=== PATIENT | female | born 1965 | race American Indian/Alaskan Native ===

== ENCOUNTER 2018-05-20 17:00 | Emergency (ER) | payer MEDICAID ==
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
[2018-05-20 19:21] VITALS: BP 118/76; PULSE 88; RESP 18; TEMP 98
[2018-05-22 22:51] VITALS: O2SAT 99
== END 2018-05-20 19:37 | disposition home or self-care (01) ==
LOC: H.ER 17:00
DX: F43.21 Adjustment disorder with depressed mood (principal)

== ENCOUNTER 2018-05-20 22:25 | Emergency (ER) | payer MEDICAID ==
--- NOTE | 2018-05-20 23:36 | ED PDOC ---
HPI: General Adult Time Seen by Provider: 05/20/18 23:13 Chief Complaint (Nursing): Pain, Chronic Chief Complaint (Provider): Chronic Pain History Per: Patient History/Exam Limitations: no limitations Onset/Duration Of Symptoms: Days ("awhile") Recently: Seen In ED Additional Complaint(s): Patient is a 53 year old female who presents to the ED for evaluation of chronic pain. Patient cannot localize pain, stating "everything hurts, and hurts for awhile". Patient was seen in this ED earlier today by this provider and demonstrated bed seeking behavior upon discharge and had to be escorted out of ED by security. Patient remained in the ED waiting room afterwards and when approached by security, signed up for a second evaluation. Patient currently not cooperative with questioning. Patient reported earlier that she is homeless and was [facility]. Denies falls/trauma. Past Medical History Reviewed: Historical Data, Nursing Documentation, Vital Signs Vital Signs: Last Vital Signs Temp 98.1 F 05/20/18 23:02 Pulse 85 05/20/18 23:02 Resp 16 05/20/18 23:02 BP 150/97 H 05/20/18 23:02 Pulse Ox 97 05/20/18 23:02 - Medical History PMH: Anxiety, Depression - Family History Family History: States: Unknown Family Hx - Living Arrangements Living Arrangements: Other (homeless) - Home Medications Home Medications: Ambulatory Orders Medication Instructions Recorded RX: No Known Home Med 05/18/18 - Allergies Allergies/Adverse Reactions: Allergies Allergy/AdvReac Type Severity Reaction Status Date / Time egg Allergy RASH Verified 05/20/18 23:01 Penicillins Allergy RASH Verified 05/20/18 23:01 Review of Systems ROS Statement: Except As Marked, All Systems Reviewed And Found Negative Constitutional: Positive for: Other (homelessness) Musculoskeletal: Positive for: Other (chronic pain) Physical Exam - Reviewed Nursing Documentation Reviewed: Yes Vital Signs Reviewed: Yes - Physical Exam Appears: Positive for: Non-toxic (poor hygiene noted), No Acute Distress Head Exam: Positive for: NORMOCEPHALIC Eye Exam: Positive for: Normal appearance ENT: Positive for: Other (Mucus membranes moist. Airway patent, (-) stridor. ) Neck: Positive for: Supple Cardiovascular/Chest: Positive for: Regular Rate, Rhythm Respiratory: Positive for: Normal Breath Sounds Extremity: Positive for: Normal ROM Neurologic/Psych: Positive for: Alert, Oriented (x3), Gait (steady in ED without assistance) - ECG O2 Sat by Pulse Oximetry: 97 (RA) Pulse Ox Interpretation: Normal Medical Decision Making Medical Decision Makin Initial Impression: chronic pain, homelessness/malingering Plan: -Motrin 600mg PO as patient refused Tylenol PO stating "I'm allergic to it, it doesn't go down" -Extensive conversation with patient was had by [facility] and ED RN Paulette. Patient was given resources for nearby homeless shelters and warming centers. Patient states "can't you just admit me, I have no where to go and don't wanna go to those other shelters". Diagnostic results d/w the patient in great detail. Diagnosis of chronic pain, homelessness/malingering d/w the patient. Based on history, exam and diagnostic results, plan will be for outpatient follow up with clinic Patient instructed to follow-up with pmd / referral provided / the clinic in 1- 2 days without fail. Return to the emergency room at any time for any new or worsening symptoms. Verbalized and repeated discharge instructions and plan. I have given the patient opportunity to ask any additional questions. Disposition - Clinical Impression Clinical Impression: Chronic pain, Homelessness - Patient ED Disposition Is Patient to be Admitted: No Counseled Patient/Family Regarding: Studies Performed, Diagnosis, Need For Followup - Disposition Referrals: [facility] [Outside] Disposition: Routine/Home Disposition Time: 23:55 Condition: STABLE Additional Instructions: The emergency medical care you received today was directed at your acute symptoms. If you were prescribed any medication, please fill it and take as directed. It may take several days for your symptoms to resolve. Return to the Emergency Department if your symptoms worsen, do not improve, or if you have any other problems. Please contact your doctor in 2 days for re-evaluation and follow up / or call one of the physicians/clinics you have been referred to that are listed on the Patient Visit Information form that is included in your discharge packet. Bring any paperwork you were given at discharge with you along with any medications you are taking to your follow up visit. Our treatment cannot replace ongoing medical care by a primary care provider (PCP) outside of the emergency department. Instructions: Chronic Pain (DC) Forms: [employer] ([employer]) Print Language: KAZAKH - POA Present On Arrival: None
[2018-05-21 00:07] VITALS: BP 130/78; PULSE 72; RESP 18; TEMP 98; O2SAT 98
== END 2018-05-21 00:07 | disposition home or self-care (01) ==
LOC: H.ER 22:25
DX: G89.29 Other chronic pain (principal)

== ENCOUNTER 2018-06-02 22:01 | Emergency (ER) | payer MEDICAID ==
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
[2018-06-03 00:08] VITALS: TEMP 98.6
[2018-06-03 00:36] VITALS: O2SAT 99
--- NOTE | 2018-06-03 03:14 | ED PDOC ---
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 Ambulating steady gait Patient requires no further intervention in the ED and is stable for discharge at this time Disposition - Clinical Impression Clinical Impression: Alcohol ingestion - POA Present On Arrival: None - Disposition Disposition: Routine/Home Disposition Time: 04:47 Condition: STABLE Instructions: Alcohol Use - When Is Drinking a Problem?
[2018-06-03 05:28] VITALS: BP 124/62; PULSE 65; RESP 16
== END 2018-06-03 05:15 | disposition home or self-care (01) ==
LOC: H.ER 22:01
DX: F10.129 Alcohol abuse with intoxication, unspecified (principal); F32.9 Major depressive disorder, single episode, unspecified; F41.9 Anxiety disorder, unspecified; Z88.0 Allergy status to penicillin